=== PATIENT | male | born 1990 | race African-American/Black ===

== ENCOUNTER 2021-07-25 10:16 | Emergency (ER) | payer SELFPAY ==
[~2021-07-25] VITALS: Ht 190.5 cm; Wt 74.8 kg
--- NOTE | 2021-07-25 10:16 | NUR ---
PT BIBSELF C/O CHEST PAIN TIGHTNESS STARTED STARTED 1AM. PT IS AAOX4, NOT IN RESPIRATORY DISTRESS, HOOKED TO [employer]ING [employer], KEPT RESTED AND COMFORTABLE. WILL CONTINUE TO MONITOR.
--- NOTE | 2021-07-25 10:40 | NUR ---
IV LINE ESTABLISHED BLOOD DRAWN AND SENT TO LAB.
--- NOTE | 2021-07-25 10:42 | NUR ---
CALLED [facility] REGARDING PT STATUS. FAXED FACE SHEET AND EKG.
[2021-07-25] MEDS ORDERED: ASPIRIN 325 MG TABLET ONE (10:52)
[2021-07-25] MEDS ORDERED: ASPIRIN 325 MG TABLET PO ONE (11:00)
[2021-07-25 11:10] LABS: BASOPHILS % (AUTO) 0.5 % (0.0-2.0); HEMATOCRIT 45 % (39-51); HEMOGLOBIN 15.2 g/dL (13.5-17.5); LYMPHOCYTES # (AUTO) 1.3 K/uL (0.8-4.8); LYMPHOCYTES % (AUTO) 24.4 % (20.0-44.0); MEAN CORPUSCULAR HGB CONC 34 g/dl (31.0-36.0); MEAN CORPUSCULAR VOLUME 94 fL (80-96); MONOCYTES # (AUTO) 0.4 K/uL (0.1-1.30); NEUTROPHILS # (AUTO) 3.5 K/uL (1.8-8.9); NEUTROPHILS % (AUTO) 64.1 % (43.0-81.0); PLATELET COUNT (AUTO) 133 K/uL (150-450); RED BLOOD CELL COUNT(AUTO) 4.74 MIL/uL (4.5-6.0); WHITE BLOOD COUNT (AUTO) 5.5 K/uL (4.3-11.0)
[2021-07-25 11:21] LABS: CALCIUM, SERUM 8.8 mg/dL (8.5-10.1); CARBON DIOXIDE 28 mmol/L (21-32); CHLORIDE 103 mmol/L (98-107); GLUCOSE 90 mg/dL (74-106); POTASSIUM 3.9 mmol/L (3.5-5.1); SODIUM SERUM 137 mmol/L (136-145); UREA NITROGEN, BLOOD 12 mg/dL (7-18)
[2021-07-25] MEDS ORDERED: NITROGLYCERIN 0.4 MG/TAB BOTTLE SL ONE (11:30)
[2021-07-25] MEDS ORDERED: NITROGLYCERIN 0.4 MG/TAB BOTTLE ONE (12:06)
[2021-07-25] MEDS ORDERED: IBUPROFEN 600 MG TABLET PO ONE (13:30)
[2021-07-25] MEDS ORDERED: IBUP-1955 PO (14:56)
--- NOTE | 2021-07-25 15:15 | NUR ---
IV removed. Catheter intact and site benign. Pressure and 4x4 applied to site. No bleeding noted. Patient discharged to home in stable condition. Written and verbal after care instructions given. Patient verbalizes understanding of instruction.
[2021-07-25 15:16] VITALS: BP 125/73
== END 2021-07-25 15:16 | disposition home or self-care (01) ==
LOC: ER 10:18
DX: R07.89 Other chest pain (principal); R94.31 Abnormal electrocardiogram [ECG] [EKG]; Z72.0 Tobacco use; Z82.49 Family history of ischemic heart disease and other diseases of the circulatory system
CPT/HCPCS: 36415; 71045; 80048; 84484 ×2; 85025; 87426; 93005 ×2; 93307; 99285; C9803

== ENCOUNTER 2021-11-10 18:43 | Emergency (ER) | payer OTHER ==
[~2021-11-10] VITALS: Ht 188 cm; Wt 79.4 kg
[~2021-11-10 18:43] MED LIST: IBUP-1955 PO
[2021-11-10 18:52] VITALS: BP 100/48
--- NOTE | 2021-11-10 18:55 | NUR ---
URINE SPECIMEN COLLECTED AND SENT TO LAB.
[2021-11-10 19:49] LABS: BILIRUBIN,URINE NEGATIVE (NEGATIVE); COLOR,URINE YELLOW (YELLOW); LEUKOCYTE ESTERASE ,URINE NEGATIVE (NEGATIVE); NITRITE, URINE NEGATIVE (NEGATIVE); PH,URINE 8.5 (5.0-8.0); PROTEIN,URINE TRACE mg/dl (NEGATIVE); UGLUCOSE NEGATIVE (NEGATIVE)
[2021-11-10 20:05] LABS: BACTERIA,URINE None seen /HPF (None Seen); RBC,URINE 0-2 /HPF (0-2); SQUAMOUS EPITHELIAL CELL,UR 0-2 /HPF (None Seen); WBC,URINE 0-2 /HPF (0-3)
[2021-11-10 20:06] LABS: URINE AMORPHOUS PHOSPHATES Moderate /HPF (None Seen)
--- NOTE | 2021-11-10 21:40 | NUR ---
Patient discharged to home in stable condition. Written and verbal after care instructions given. Patient verbalizes understanding of instruction. Pt ambulatory with a steady gait
== END 2021-11-10 21:40 | disposition home or self-care (01) ==
LOC: ER 18:49
DX: R35.0 Frequency of micturition (principal); F17.200 Nicotine dependence, unspecified, uncomplicated
CPT/HCPCS: 81001